=== PATIENT | male | born 1930 | race Two or more races ===

== ENCOUNTER → 2018-11-22 19:31 | Outpatient (CLI) | payer MEDICARE ==
[2018-11-22 19:44] LABS: ANION GAP 13.2 mmol/L (8-16); CARBON DIOXIDE 22.5 mmol/L (21.0-32.0); CREATININE - SERUM 1.9 mg/dL (0.6-1.3); POTASSIUM - SERUM 4.7 mmol/L (3.5-5.1)
== END | disposition home or self-care (01) ==
LOC: D.LABREF 19:31
PROVIDERS: ATTEND Internal Medicine Cardiovascular Disease
DX: I10 Essential (primary) hypertension (principal)